=== PATIENT | female | born 2000 | race Caucasian/White ===

== ENCOUNTER 2022-08-16 17:36 | Emergency (ER) | payer BC ==
[~2022-08-16] VITALS: Ht 170.2 cm; Wt 72.0 kg
[2022-08-16 17:39] VITALS: BP 135/87
[2022-08-16] MEDS ORDERED: AMOX500C2 PO (18:47)
== END 2022-08-16 19:10 | disposition home or self-care (01) ==
LOC: ER 17:38
DX: J32.9 Chronic sinusitis, unspecified (principal)
CPT/HCPCS: 99283

== ENCOUNTER 2022-12-12 20:17 | Emergency (ER) | payer BC ==
[~2022-12-12] VITALS: Ht 170.2 cm; Wt 86.0 kg
[2022-12-12 20:19] VITALS: BP 129/74
== END 2022-12-12 23:15 | disposition left against medical advice (07) ==
LOC: ER 20:18
DX: K08.89 Other specified disorders of teeth and supporting structures (principal); Z53.21 Procedure and treatment not carried out due to patient leaving prior to being seen by health care provider
CPT/HCPCS: 99281